=== PATIENT | male | born 1990 | race Caucasian/White ===

== ENCOUNTER → 2019-06-15 09:45 | Outpatient (CLI) | payer BC, SELFPAY ==
[2019-06-15 10:03] LABS: Basophils # 0.1 K/mm3 (0-0.2); Eosinophils # 0.1 K/mm3 (0.0-0.4); Eosinophils % 2.3 % (0.1-12.0); Hematocrit 47.9 % (42.0-52.0); Hemoglobin 16.4 g/dL (14.1-18.0); Lymphocytes # 2.3 K/mm3 (0.7-4.5); Mean Corpuscular HGB Conc 34.2 g/dL (31.8-35.4); Mean Corpuscular Hemoglobin 34.9 pg (27.0-31.2); Mean Corpuscular Volume 102.2 fl (80-94); Mean Platelet Volume 9.2 fl (7.4-10.4); Monocytes # 0.2 K/mm3 (0.1-1.0); Monocytes % 3.7 % (1.7-9.3); Neutrophils % 53.1 % (37.0-80.0); Platelet Count 189 K/mm3 (142-424); Red Blood Count 4.69 M/mm3 (4.60-6.20); Red Cell Distribution Width 12.7 % (11.5-17.5); White Blood Count 5.7 K/mm3 (4.8-10.8)
[2019-06-15 12:12] LABS: Alanine Aminotransferase 36 U/L (12-78); Albumin Level 4.3 gm/dL (3.4-5.0); Albumin/Globulin Ratio 1.5 (1.1-1.8); Alkaline Phosphatase 75 U/L (46-116); Anion Gap 13.6 mEq/L (5-15); Aspartate Amino Transferase 28 U/L (15-37); Bilirubin,Total 0.4 mg/dL (0.2-1.0); Blood Urea Nitrogen 11 mg/dL (7-18); Calcium 9.2 mg/dL (8.5-10.1); Carbon Dioxide 29 mmol/L (21.0-32.0); Chloride 103 mmol/L (98-107); Chol/HDL Ratio 3.4 (1-3.5); Cholesterol 168 mg/dL (140-200); Creatinine,Serum 1.58 mg/dL (0.70-1.30); Estimated Glomerular Filt Rate 51 ml/min (>60); Ferritin 285 ng/mL (8-388); GFR (African American) 62 ML/MIN (>60); Globulin 2.9 gm/dl (1.3-3.2); Glucose 85 mg/dL (74-106); HDL Cholesterol 49 mg/dL (27-67); LDL Cholesterol 97 mg/dL (0-130); Potassium 4.6 mmoL/L (3.5-5.1); Sodium 141 mmol/L (136-145); Total Protein,Serum 7.2 gm/dL (6.4-8.2); Triglycerides 111 mg/dL (30-200); VLDL Cholesterol 22 mg/dL (0-40)
== END ==
PROVIDERS: Visit Provider Internal Medicine Adolescent Medicine
DX: E83.110 Hereditary hemochromatosis (principal)
CPT/HCPCS: 36415; 80053; 80061; 82728; 85025

== ENCOUNTER → 2019-07-05 06:10 | Outpatient (CLI) | payer BC, SELFPAY ==
[2019-07-05 17:38] LABS: Total Volume,Urine 1725 mL (800-1800)
[2019-07-05 18:10] LABS: Creatinine 24 Hour,Urine 2726 mg/24hr (630-2500); Creatinine,Urine Random 158 mg/dL (20-320)
[2019-07-05 20:59] LABS: Collection Time,Urine 24 hours
[2019-07-09 16:24] LABS: Albumin, U 33.2 % (.); Alpha-1-Globulin, U 3.2 % (.); Alpha-2-Globulin, U 16.2 % (.); Beta Globulin, U 22.9 % (.); Gamma Globulin, U 24.6 % (.); M-Spike, % Not Observed % (Not Observed); Prot,24hr calculated 75 mg/24 hr (30-150); Protein,Total,Urine 4.4 mg/dL (Not Estab.)
== END ==
PROVIDERS: Visit Provider Internal Medicine Adolescent Medicine
DX: R79.89 Other specified abnormal findings of blood chemistry (principal)
CPT/HCPCS: 82570; 84156; 84166

== ENCOUNTER → 2019-07-08 14:22 | Outpatient (CLI) | payer BC, SELFPAY ==
--- NOTE | 2019-07-08 14:24 | US_ITS ---
PROCEDURE: US KIDNEY CLINICAL INDICATION: ELEVATED SERUM CREATININE COMPARISON: No exams were available for comparison FINDINGS: Kidneys are normal size shape and position. No hydronephrosis mass or perinephric fluid. No cortical scarring IMPRESSION: Unremarkable bilateral renal ultrasound Dictated by: Rm Ma MD 07/09/2019 15:01 Electronically signed by Rm Ma MD in [place] 07/09/2019 15:01
== END ==
PROVIDERS: PCP Internal Medicine Adolescent Medicine; Visit Provider Internal Medicine Adolescent Medicine
DX: R79.89 Other specified abnormal findings of blood chemistry (principal)
CPT/HCPCS: 76770